=== PATIENT | female | born 1980 | race Caucasian/White ===

== ENCOUNTER → 2024-08-11 18:31 | Outpatient (REF) | payer OTHER, SELFPAY | LOC: WDC 18:31 | PROVIDERS: ATTENDING PHYSICIAN Nurse Practitioner | DX: Z12.31 Encounter for screening mammogram for malignant neoplasm of breast (principal) | CPT/HCPCS: 77063; 77067 ==

== ENCOUNTER 2024-10-02 20:23 | Emergency (ER) | payer OTHER, SELFPAY ==
[2024-10-02 20:25] VITALS: BP 154/96
--- NOTE | 2024-10-02 20:50 | ED.GENMED ---
History of Present Illness
General
Chief Complaint: Head Injury
Source: patient and spouse
Time Seen by Provider: 10/02/24 20:36
History of Present Illness
History of Present Illness:
This patient is a 43-year-old female who states that just prior to presentation, and standing next to her , while putting up [place] decorations a plaque which was above the door frame fell down, hitting her on the head. She did not fall
down and there was no loss of consciousness. They estimate that the plaque weighed no greater than 2 pounds. However, since the event she is complaining of feeling mild nausea, mild headache especially along the right side of the head associated
with mild photophobia and feeling 'foggy'. She denies vomiting, neck pain, numbness, focal weakness, visual changes, clumsiness, abnormal gait, dizziness, or other complaints.
Past History
Past History
ED Past Medical History: Asthma and Psychiatric (anxiety, depression)
ED Past Surgical History: and Other ([place] teeth surgery, 2 shoulder surgeries)
Social History
Tobacco: Non-smoker
Alcohol: Occasional
Drug: None
Personal:
Living: with family
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
Phy Exam
Physical Exam
Physical Exam:
GENERAL: Alert , in no apparent distress
EYE: pupils equal and reactive, EOMI, no nystagmus, no objective photophobia noted able to tolerate exam without difficulty
NECK: Supple, no significant adenopathy, no midline tenderness.
ENT: o/p clr, mmm, no zabala, no raccoon, no rhinorrhea, no signs of head or facial injury noted on exam.
CARDIAC: Regular rate and rhythm .
LUNGS: Clear breath sounds bilaterally, no acute respiratory distress, no wheezes/rales/rhonchi
ABDOMEN: Soft, without focal tenderness, no r/g, no cvat
NEUROLOGICAL: Alert and oriented, no focal neuro deficits, normal gait, [id number] normal, no nerves II through XII intact, motor 5 out of 5, sensory intact
SKIN: Warm and dry, skin intact.
MUSCULOSKELETAL: No edema, well perfused.
PSYCH: Normal and appropriate interaction.
Course
Orders/Labs/Results
Orders:
Orders
10/02/24 20:50
Ondansetron HCl [Zofran] 4 mg PO NOW STA
Vital Signs
Initial and Last Documented VS:
Initial Vital Signs
Temp Pulse Resp BP Pulse Ox
98.6 F 91 16 154/96 99
10/02/24 20:25 10/02/24 20:25 10/02/24 20:25 10/02/24 20:25 10/02/24 20:25
Last Documented Vital Signs
Temp Pulse Resp BP Pulse Ox
98.6 F 91 16 154/96 99
10/02/24 20:25 10/02/24 20:25 10/02/24 20:25 10/02/24 20:25 10/02/24 20:25
*Critical Care Note
Total Time (30-74mins, 75-104mins- exclusive of procedures): Not Applicable
Update Note
Update Note:
Patient presents to the Emergency Department with head injury____
Number and Complexity of Problems Addressed at the Encounter
� Chronic conditions affecting care:
� Acute Exacerbation and/or Progression of Chronic Illness:
� Differential Diagnosis includes: But not limited to laceration/abrasion, concussion, intracranial bleed, etc.
Amount and/or Complexity of Data to be Reviewed and Analyzed
� I performed an independent evaluation of and my interpretation is:
EKG:
CT:
Xrays:
Laboratory Studies:
Other:
� Review of other/old records reveals:
� Clinical information was obtained by an independent historian: who is bedside
� Prescriptions/Medications Considered but not given:
� Further testing considered but not performed:
Risk of Complications and/or Morbidity or Mortality of Patient Management
� Social determinants of health affecting care:
� Discussion with other providers (PCP, Hospitalists, Consultants, etc):
� Escalation of care including admission/observation vs risk of discharge considered: Given reassuring exam, reassuring history, overall low suspicion for intracranial injury. Patient is awake alert with normal mentation, does
not describe a severe headache, vomiting. Neurological exam is completely normal. No bruising or other abnormalities to suggest head or facial injury otherwise. I do suspect patient has a concussion. Discussed with her importance of 'brain
rest', observation, and reasons to return to the ER.
ED Attending Note
-
Portions of this chart may have been created with voice recognition software.� Occasional wrong word or��sound alike� substitutions may have occurred due to the inherent limitations of voice recognition software.
Discharge Plan
Departure
Patient Disposition: Home (Routine Discharge)
Date of Disposition: 10/02/24
Time of Disposition: 20:53
Patient with high blood pressure during this ER visit?: Yes
Condition: Good
Discharge Problem:
Concussion
Instructions: Concussion, Adult (DC), BLOOD PRESSURE
Prescriptions:
New
ondansetron 4 mg tablet,disintegrating
4 mg PO DAILY PRN (Reason: nausea and vomiting) 2 Days Qty: 5 0RF
No Action
clonazepam 0.5 MG tablet
0.5 mg PO HS PRN (Reason: insomnia/anxiety)
sumatriptan succinate 50 MG tablet
50 mg PO Q2HPRN PRN (Reason: migraine)
hydroxyzine HCl 50 MG tablet
50 mg PO HS PRN (Reason: insomnia)
quetiapine 100 MG tablet
100 mg PO HS
buspirone [BuSpar] 30 MG tablet
30 mg PO BID
spironolactone 50 MG tablet
50 mg PO DAILY
bupropion HCl 300 MG tablet extended release 24 hr
300 mg PO DAILY
bupropion HCl 150 MG tablet extended release 24 hr
150 mg PO DAILY
atomoxetine 80 MG capsule
80 mg PO DAILY
bimatoprost [Lumigan] 1 DROP drops
1 drp ophthalmic (eye) DAILY
Activity Restrictions/Additional Instructions:
IF YOU DEVELOP SEVERE HEADACHE, REPEATED VOMITING, NECK PAIN, NUMBNESS, CHANGE IN VISION, DIZZINESS, LETHARGY, OR OTHER WORRISOME SIGNS, PLEASE RETURN TO THE ER IMMEDIATELY. PLEASE SEE YOUR DOCTOR THIS WEEK FOR FURTHER FOLLOW-UP.
Interventions
Interventions:
*Risk Screen - Suicide Last Done: 10/02/24 20:25
*Neglect/Abuse Screening Last Done: 10/02/24 20:25
ED- Fall Risk Assessment Last Done: 10/02/24 20:35
Discharge Date and Time
Print Language: CROATIAN
[2024-10-02 20:55] VITALS: BMI 45.5
[2024-10-02] MEDS: ZOFRAN 4 MG PO (20:58)
[2024-10-02 21:04] VITALS: BP 140/88
== END 2024-10-02 21:15 | disposition home or self-care (01) ==
LOC: EMR 20:23
PROVIDERS: EMERGENCY PHYSICIAN Emergency Medicine
DX: S06.0X0A Concussion without loss of consciousness, initial encounter (principal); R11.0 Nausea; W20.8XXA Other cause of strike by thrown, projected or falling object, initial encounter; Y93.89 Activity, other specified; F32.A Depression, unspecified; F41.9 Anxiety disorder, unspecified; J45.909 Unspecified asthma, uncomplicated; Z88.5 Allergy status to narcotic agent; Z91.018 Allergy to other foods; Z91.013 Allergy to seafood
CPT/HCPCS: 99283

== ENCOUNTER → 2025-07-08 15:13 | Outpatient (REF) | payer OTHER, SELFPAY | LOC: RCS 15:13 | PROVIDERS: ATTENDING PHYSICIAN Nurse Practitioner Family; FAMILY PHYSICIAN Nurse Practitioner | DX: F33.1 Major depressive disorder, recurrent, moderate (principal); F41.1 Generalized anxiety disorder; F43.12 Post-traumatic stress disorder, chronic; F90.2 Attention-deficit hyperactivity disorder, combined type | CPT/HCPCS: 93005 ==

== ENCOUNTER → 2025-09-17 09:06 | Outpatient (REF) | payer OTHER, SELFPAY | LOC: WDC 09:06 | PROVIDERS: ATTENDING PHYSICIAN Nurse Practitioner Adult Health; FAMILY PHYSICIAN Nurse Practitioner | DX: Z12.31 Encounter for screening mammogram for malignant neoplasm of breast (principal) | CPT/HCPCS: 77063; 77067 ==